=== PATIENT | female | born 1975 | race Two or more races ===

== ENCOUNTER 2021-04-23 08:26 | Emergency (ER) | payer OTHER ==
[~2021-04-23] VITALS: Ht 162.6 cm; Wt 74.8 kg
[2021-04-23] MEDS ORDERED: PYRIDIUM DS200 MG PO (13:13)
== END 2021-04-23 13:27 | disposition home or self-care (01) ==
LOC: ER 08:26
DX: N39.0 Urinary tract infection, site not specified (principal)

== ENCOUNTER → 2021-06-12 | Emergency (ER) | payer OTHER ==
[~2021-06-12] VITALS: Ht 165.1 cm; Wt 77.1 kg
[~2021-06-12] MED LIST: PYRIDIUM DS200 MG PO
== END ==
LOC: ER 11:20
DX: M51.17 Intervertebral disc disorders with radiculopathy, lumbosacral region (principal)

== ENCOUNTER 2022-01-07 11:06 | Emergency (ER) | payer OTHER ==
[~2022-01-07] VITALS: Ht 165.1 cm; Wt 77.1 kg
[2022-01-07] MEDS ORDERED: CARAFATE1 GM PO (11:33)
[2022-01-07] MEDS ORDERED: PEPCID AC20 MG PO (11:33)
[2022-01-07] MEDS ORDERED: PROTONIX20 MG PO (11:33)
[2022-01-07] MEDS ORDERED: LEVSIN0.125 MG PO (16:12)
== END 2022-01-07 16:35 | disposition home or self-care (01) ==
LOC: ER 11:06
DX: R10.13 Epigastric pain (principal)